=== PATIENT | female | born 1990 | race Caucasian/White ===

== ENCOUNTER 2018-07-28 07:18 | Emergency (ER) | payer BC ==
[~2018-07-28] VITALS: Ht 167.6 cm; Wt 115.0 kg
[~2018-07-28 07:18] MED LIST: ALBU8.5H8 IH; ALBU8HFA PO; IBUP-1573 PO; PRED20TA PO
[2018-07-28 08:49] LABS: CLARITY,URINE CLEAR (Clear); COLOR,URINE YELLOW (Yellow); GLUCOSE, URINE NEGATIVE (Neg); KETONES,URINE NEGATIVE (Neg); LEUKOCYTE ESTERASE ,URINE NEGATIVE (Neg); NITRITES, URINE NEGATIVE (Neg); OCCULT BLOOD,URINE NEGATIVE (Neg); PROTEIN,URINE NEGATIVE (Neg); URINE HCG NEGATIVE (NEG); UROBILINOGEN,URINE 0.2 E.U/dL (0.2-1.0)
[2018-07-28 08:51] LABS: BASOPHILS % (AUTO) 0.4 % (0-1); EOSINOPHILS # (AUTO) 0.2 X10'3 (0-0.9); EOSINOPHILS % (AUTO) 2.4 % (0-6); HEMATOCRIT 41.7 % (35.0-45.0); HEMOGLOBIN 14.2 g/dl (12.0-16.0); LYMPHOCYTES % (AUTO) 33.3 % (21-51); MEAN CORPUSCULAR HGB CONC 34.1 % (33.0-36.5); MEAN CORPUSCULAR VOLUME 99.5 FL (78-98); MEAN PLATELET VOLUME 7.5 FL (7.4-10.4); MONOCYTES # (AUTO) 0.5 X10'3 (0-0.9); MONOCYTES % (AUTO) 5.2 % (2-12); NEUTROPHILS # (AUTO) 5.3 X10'3 (1.8-7.7); NEUTROPHILS % (AUTO) 58.7 % (42-75); PLATELET COUNT 331 X10'3 (140-440); RED BLOOD COUNT 4.19 X10'6 (4.20-5.60); RED CELL DISTRIBUTION WIDTH 13.8 % (11.5-14.5)
[2018-07-28 09:10] LABS: UA COLLECTION TYPE CLN CATCH MIDSTREAM
[2018-07-28 09:23] LABS: ALANINE AMINOTRANSFERASE 45 U/L (12-78); ALBUMIN 3.6 G/DL (3.4-5.0); ALBUMIN/GLOBULIN RATIO 0.9 (1.1-1.5); ALKALINE PHOSPHATASE 63 IU/L (46-116); ANION GAP 12 (8-16); ASPARTATE AMINO TRANSFERASE 21 U/L (10-37); BILIRUBIN,TOTAL 0.2 MG/DL (0.1-1.0); BLOOD UREA NITROGEN 10 MG/DL (7-18); BUN/CREATININE RATIO 14.3 (6.6-38.0); CALCIUM 9.2 MG/DL (8.5-10.1); CHLORIDE 104 MMOL/L (99-107); GLUCOSE 96 MG/DL (70-104); LIPASE 118 U/L (73-393); POTASSIUM 4.2 MMOL/L (3.5-5.1); SODIUM 139 MMOL/L (135-145); TOTAL CARBON DIOXIDE 23.3 MMOL/L (24-32); TOTAL PROTEIN 7.4 G/DL (6.4-8.2); eGFR > 90 ML/MIN
[2018-07-28 11:17] VITALS: BP 138/88
== END 2018-07-28 11:20 | disposition home or self-care (01) ==
LOC: ER 07:18
DX: N83.202 Unspecified ovarian cyst, left side (principal); N83.201 Unspecified ovarian cyst, right side; R10.31 Right lower quadrant pain; J45.909 Unspecified asthma, uncomplicated; Z98.890 Other specified postprocedural states; Z88.5 Allergy status to narcotic agent; Z79.899 Other long term (current) drug therapy
CPT/HCPCS: 36415; 74176; 80053; 81003; 81025; 83690; 85025; 99285

== ENCOUNTER 2019-02-20 11:42 | Emergency (ER) | payer BC ==
[~2019-02-20] VITALS: Ht 167.6 cm; Wt 109.1 kg
[2019-02-20 12:08] VITALS: BP 139/101
--- NOTE | 2019-02-20 13:21 | NUR ---
Dr. Andujar with patient.
== END 2019-02-20 13:44 | disposition home or self-care (01) ==
LOC: ER 11:42
DX: F32.9 Major depressive disorder, single episode, unspecified (principal); J45.909 Unspecified asthma, uncomplicated; Z88.5 Allergy status to narcotic agent; Z88.6 Allergy status to analgesic agent; Z79.899 Other long term (current) drug therapy; Z98.890 Other specified postprocedural states
CPT/HCPCS: 99284

== ENCOUNTER 2019-02-24 18:40 | Emergency (ER) | payer BC ==
[~2019-02-24] VITALS: Ht 167.6 cm; Wt 106.0 kg
[2019-02-24] MEDS ORDERED: FLUT15.815 NAS (20:24)
[2019-02-24] MEDS ORDERED: ALBU8HFA PO (20:24)
[2019-02-24] MEDS ORDERED: VENL75TA90 PO (20:24)
[2019-02-24] MEDS ORDERED: LEVO112T5 PO (20:24)
[2019-02-24] MEDS ORDERED: CHOL500050 PO (20:24)
[2019-02-24 21:05] LABS: BASOPHILS # (AUTO) 0.1 X10'3 (0-0.2); BASOPHILS % (AUTO) 0.5 % (0-1); EOSINOPHILS # (AUTO) 0.1 X10'3 (0-0.9); EOSINOPHILS % (AUTO) 0.6 % (0-6); HEMATOCRIT 41.3 % (35.0-45.0); HEMOGLOBIN 14.2 g/dl (12.0-16.0); LYMPHOCYTES % (AUTO) 26.3 % (21-51); MEAN CORPUSCULAR HEMOGLOBIN 34.2 PG (27.0-31.0); MEAN CORPUSCULAR HGB CONC 34.3 g/dL (33.0-36.5); MEAN CORPUSCULAR VOLUME 99.5 FL (78-98); MEAN PLATELET VOLUME 7.5 FL (7.4-10.4); MONOCYTES # (AUTO) 0.7 X10'3 (0-0.9); MONOCYTES % (AUTO) 5.8 % (2-12); NEUTROPHILS # (AUTO) 7.5 X10'3 (1.8-7.7); NEUTROPHILS % (AUTO) 66.8 % (42-75); PLATELET COUNT 318 X10'3 (140-440); RED BLOOD COUNT 4.15 X10'6 (4.20-5.60); RED CELL DISTRIBUTION WIDTH 13.6 % (11.5-14.5); WHITE BLOOD COUNT 11.2 X10'3 (4.5-11.0)
[2019-02-24 21:16] LABS: ALANINE AMINOTRANSFERASE 64 U/L (12-78); ALBUMIN 3.8 G/DL (3.4-5.0); ALKALINE PHOSPHATASE 75 IU/L (46-116); ANION GAP 8 (8-16); ASPARTATE AMINO TRANSFERASE 34 U/L (10-37); BILIRUBIN,TOTAL 0.3 MG/DL (0.1-1.0); BLOOD UREA NITROGEN 10 MG/DL (7-18); BUN/CREATININE RATIO 11.8 (6.6-38.0); CALCIUM 9.3 MG/DL (8.5-10.1); CHLORIDE 104 MMOL/L (99-107); CREATININE 0.85 MG/DL (0.40-0.90); GLUCOSE 114 MG/DL (70-104); POTASSIUM 3.5 MMOL/L (3.5-5.1); SODIUM 139 MMOL/L (135-145); TOTAL CARBON DIOXIDE 26.7 MMOL/L (24-32); TOTAL PROTEIN 7.5 G/DL (6.4-8.2); eGFR 80 ML/MIN
[2019-02-24 21:25] LABS: ETHANOL < 0.010 GM/DL (0.0-0.010)
[2019-02-24 21:30] LABS: URINE HCG NEGATIVE (NEG)
[2019-02-24 21:40] LABS: URINE AMPHETAMINE SCREEN NEGATIVE (Neg); URINE BARBITUATE SCREEN NEGATIVE (Neg); URINE BENZODIAZEPINES SCREEN NEGATIVE (Neg); URINE CANNABINOID SCREEN NEGATIVE (Neg); URINE COCAINE SCREEN NEGATIVE (Neg); URINE METHADONE SCREEN NEGATIVE (Neg); URINE OPIATE SCREEN NEGATIVE (Neg); URINE PHENCYCLIDINE SCREEN NEGATIVE (Neg)
--- NOTE | 2019-02-24 22:40 | NUR ---
Pt affirms S/I a plan to cut self, but no timeframe. 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 Pt's stress appears associated with being "in the house alot and then taking care of my when she gets home. It's been hard." Pt reports a hx of self-mutilation unrelated to suicidality in the past. She indicates having last cut "a few years ago." Pt denies audio/visual hallucinations at this time. Mood is flat. Pt is appropriate and cooperative with staff. She has verbally agreed to inform staff of any changes to her thought processes.
--- NOTE | 2019-02-24 23:11 | NUR ---
Discussed pt's c/o headache pain, 04/[address] Pack; new order received.
[2019-02-24] MEDS ORDERED: acetaminophen 325mg tablet PO ONE (23:15)
--- NOTE | 2019-02-25 05:58 | NUR ---
Packet sent [facility]. Unable to confirm receipt of packet as [id number]-hours.
--- NOTE | 2019-02-25 06:38 | NUR ---
Patient sitting up in bed. No distress observed. Continue to monitor.
[2019-02-25] MEDS ORDERED: venlafaxine XR 75mg capsule (Q24H) PO SCH (08:00)
[2019-02-25] MEDS: fluticasone nasal spray 16GM bottle NS SCH ×2 (08:00→19:12)
--- NOTE | 2019-02-25 08:20 | NUR ---
RN spoke to patient because she wasn't eating. Patient states she is not hungry. Continue to monitor.
[2019-02-25] MEDS: levoTHYROXINE 112mcg tablet PO SCH (08:40)
--- NOTE | 2019-02-25 10:55 | NUR ---
Patient sitting up in bed. Patient states she is feeling suicidal. Patient states she wants to take meds to [place]. Continue to monitor.
[2019-02-25] MEDS ORDERED: acetaminophen 325mg tablet PO PRN (12:40)
[2019-02-25] MEDS ORDERED: ibuprofen tablet 400 MG TABLET PO PRN (12:40)
--- NOTE | 2019-02-25 13:05 | NUR ---
Patient eating some of her food. Continue to monitor.
--- NOTE | 2019-02-25 16:00 | NUR ---
Patient visiting with her partner. No distress observed. Continue to monitor.
--- NOTE | 2019-02-25 17:31 | NUR ---
Dr Escobedo speaking with patient. Continue to monitor.
[2019-02-25] MEDS ORDERED: lamoTRIgine 25mg tablet PO ONE (18:20)
--- NOTE | 2019-02-25 19:00 | NUR ---
Per [facility] the patient has been accepted at [facility] in [facility].
--- NOTE | 2019-02-25 20:00 | NUR ---
The patient is resting on her bed. She is tearful and upset. She stated her sleep has been poor and added, "My mind wouldn't stop" She has increased anxiety because she was hoping she would be able to be placed locally but knows she has been accepted at [facility]. THe patient was encouraged to take this time away to focus on herself and healing. She was reminded that she has had to focus on others and now would be a good time to step back and take of her own needs. She denies active suicidal thoughts at this time but admitted she had been having suicidal thoughts prior to coming into the ER. The patient is very pleasant and cooperative.
--- NOTE | 2019-02-25 22:11 | NUR ---
The patient appears to be asleep at this time
--- NOTE | 2019-02-26 00:06 | NUR ---
The patient appears to be asleep at this time
--- NOTE | 2019-02-26 02:37 | NUR ---
The patient appears to be asleep
--- NOTE | 2019-02-26 05:12 | NUR ---
The patient appears to be asleep
[2019-02-26 05:30] VITALS: BP 126/71
--- NOTE | 2019-02-26 07:11 | NUR ---
Patient appears to be sleeping at this time. No apparent distress. Will continue to monitor.
[2019-02-26] MEDS: fluticasone nasal spray 16GM bottle NS SCH (07:50)
[2019-02-26] MEDS: levoTHYROXINE 112mcg tablet PO SCH (07:54)
[2019-02-26] MEDS ORDERED: venlafaxine XR 37.5mg cap (Q24H) PO SCH (08:00)
[2019-02-26] MEDS ORDERED: lamoTRIgine 25mg tablet PO SCH (08:00)
--- NOTE | 2019-02-26 08:55 | NUR ---
Discussed with patient about being transferred to [facility] in [place]. Patient stated that she is feeling better and doesn't see why she needs to go there. Patient stated that she just needed a medication adjustment and is not feeling like she is going to hurt herself any longer. Discussed the imporance of getting the help that she needs in order to continue to be someone that she is proud of and can help provide for her new family. Patient is reluctant to go but states that she is willing to continue her treatment and to get help. Spouse and parent at bedside.
== END 2019-02-26 09:30 ==
LOC: ER 18:40
DX: F79 Unspecified intellectual disabilities (principal); R45.851 Suicidal ideations; J45.909 Unspecified asthma, uncomplicated; F31.9 Bipolar disorder, unspecified; Z90.89 Acquired absence of other organs; Z98.890 Other specified postprocedural states; Z88.5 Allergy status to narcotic agent; Z79.899 Other long term (current) drug therapy
CPT/HCPCS: 36415; 80053; 80305; 80320; 81025; 84443; 85025; 99285

== ENCOUNTER 2024-09-26 12:25 | Emergency (ER) | payer BC, MEDICAID ==
[~2024-09-26] VITALS: Ht 167.6 cm; Wt 122.7 kg
[~2024-09-26 12:25] MED LIST changes: -ALBU8.5H8 IH; +CHOL500050 PO; +FLUT15.815 NAS; -IBUP-1573 PO; +LEVO112T5 PO; -PRED20TA PO; +VENL75TA90 PO
[2024-09-26] MEDS: ketorolac trometh 30MG/ML vial 30 MG/ML VIAL IM ONE (13:34)
[2024-09-26 13:38] VITALS: BP 134/85; PULSE 81; RESP 16; TEMP 98; O2SAT 96
== END 2024-09-26 13:43 | disposition home or self-care (01) ==
LOC: ER 12:26
DX: J06.9 Acute upper respiratory infection, unspecified (principal); M94.0 Chondrocostal junction syndrome [Tietze]; J45.909 Unspecified asthma, uncomplicated; Z88.5 Allergy status to narcotic agent; Z79.899 Other long term (current) drug therapy; Z90.89 Acquired absence of other organs; Z20.822 Contact with and (suspected) exposure to COVID-19
CPT/HCPCS: 36415; 71045; 87502; 87503; 87811; 93005; 96372; 99285; J1885

== ENCOUNTER 2024-11-12 16:08 | Emergency (ER) | payer MEDICAID ==
[~2024-11-12] VITALS: Ht 167.6 cm; Wt 127.3 kg
[2024-11-12 16:14] VITALS: BP 150/79; PULSE 95; RESP 18; O2SAT 96
[2024-11-12] MEDS ORDERED: PRED20TA PO (16:56)
[2024-11-12] MEDS ORDERED: ALBU18HF2 INH (16:56)
[2024-11-12 17:14] VITALS: TEMP 97.9
== END 2024-11-12 17:16 | disposition home or self-care (01) ==
LOC: ER 16:09
DX: J22 Unspecified acute lower respiratory infection (principal); J45.901 Unspecified asthma with (acute) exacerbation; F31.9 Bipolar disorder, unspecified; Z88.5 Allergy status to narcotic agent; Z88.8 Allergy status to other drugs, medicaments and biological substances; Z90.89 Acquired absence of other organs; Z98.890 Other specified postprocedural states
CPT/HCPCS: 99283

== ENCOUNTER → 2024-11-14 | Emergency (ER) | payer MEDICAID ==
[~2024-11-14] VITALS: Ht 167.6 cm; Wt 127.8 kg
[~2024-11-14] MED LIST changes: +ALBU18HF2 INH; +PRED20TA PO
[2024-11-14 07:36] VITALS: BP 151/86; PULSE 76; RESP 18; TEMP 97.6; O2SAT 98
== END | disposition home or self-care (01) ==
LOC: ER 07:30
DX: J10.1 Influenza due to other identified influenza virus with other respiratory manifestations (principal); J45.909 Unspecified asthma, uncomplicated; F31.9 Bipolar disorder, unspecified; Z88.5 Allergy status to narcotic agent; Z88.2 Allergy status to sulfonamides; Z88.8 Allergy status to other drugs, medicaments and biological substances; Z90.89 Acquired absence of other organs; Z98.890 Other specified postprocedural states
CPT/HCPCS: 99281

== ENCOUNTER 2025-03-06 14:07 | Emergency (ER) | payer MEDICAID ==
[~2025-03-06] VITALS: Ht 167.6 cm; Wt 118.2 kg
[~2025-03-06 14:07] MED LIST changes: -PRED20TA PO
--- NOTE | 2025-03-06 14:19 | Physician Documentation ---
History of Present Illness ~ Chief Complaint: Chest Pain Stated Complaint: CHEST WALL PAIN/NECK PAIN Time Seen by MD: 16:00 Primary Medical Doctor: None HPI 35-year-old female presents to the ED with a complaint of right-sided neck pain, chest pain that is burning in nature in the mid epigastric region. Patient does admit to significant family history of cardiac disease including an uncle who patient states had his 1st heart attack at age 30 with stent placement at that time as well as again at age 62 or so. Patient also states that her father has had a stroke and her grandpa passed from heart disease/myocardial infarction. Patient currently denies any diaphoresis or shortness of breath or abdominal pain or nausea, vomiting, diarrhea. Patient states she is prediabetic but denies any current treatment of hypertension or diabetes. Patient states she recently has changed diet and striving to maintain a more healthy body weight. She has no other concern or complaint at this time. Day of Onset: March 06, 2025 Tetanus within 5 Years?: No Allergies: Coded Allergies: Sulfa (Sulfonamide Antibiotics) (Verified Allergy, Unknown, 11/14/24) codeine (Verified Allergy, Unknown, 11/14/24) hydromorphone (Verified Allergy, Unknown, 11/14/24) Active Prescriptions See Medication Reconciliation Form. Medication Reconciliation Scheduled Cholecalciferol (Vitamin D3) (Vitamin D), 5,000 UNIT PO DAILY, (Reported) Fluticasone Propionate (Aller-Mukund), 1 SPR LISA BID, (Reported) Levothyroxine Sodium (Levothyroxine Sodium), 1 TAB PO DAILY, (Reported) Venlafaxine HCl (Venlafaxine HCl ER), 1 TAB PO DAILY, (Reported) Scheduled PRN Albuterol Sulfate (Ventolin Hfa), 2 PUFFS INH Q4HPRN PRN for wheezing albuterol inhaler (Pro-Air Inhaler), 1-2 PUFFS PO Q4H PRN for shortness of breath, (Reported) Past Medical History Past Medical History: Asthma, Thyroid (unspecified), Bipolar, Depression Past Surgical History: orthopedic surgeries, tonsillectomy Other Past Family History: NONCONTRIBUTORY Alcohol Use: Occasionally Drug Use: none Lives with: Family Lives In: Home Occupation: employed Review of Systems All Other Systems at this time: Reviewed and Negative ROS As stated above in the HPI, otherwise all systems are reviewed and negative. Physical Exam Vital Signs: Temperature: 98.0, Heart Rate: 89, Respiratory Rate: 16, BP: 149/83, Pulse Oximetry: 98, Weight: 118.180 Oxygen Flow Rate: 0 Physical Exam General: Awake and Alert, no acute distress. HEENT: Conjunctiva pink, Sclera clear, Mucus Membranes moist. Neck: Supple without masses and tenderness. Resp: Unlabored. Lungs clear to auscultation bilaterally. Chest: Patient on exam has significant tenderness to palpation reproducible tenderness of the right side of her chest and clavicle as well as her sternocleidomastoid muscle of the right side. I do not appreciate any visible ecchymosis or swelling. Heart: Regular Rate and rhythm, normal S1 and S2 without murmur, rub or gallop. Abdomen: Soft and non tender no organomegaly Extremities: No cyanosis,clubbing or edema. Skin: Warm and Dry. Progress Results/Orders Results/Orders Orders - NOHEMY CAMARENA PAC Ketorolac Trometh 30mg/Ml Vial (Toradol (03/06/25 18:31) Vital Signs 03/06/25 14:11 Temp 98.0 Pulse 89 Resp 16 B/P (MAP) 149/83 Pulse Ox 98 O2 Flow Rate 0 Laboratory Tests Test 03/06/25 14:15 03/06/25 14:23 Urine Specimen Description Cln catch midstream Urine Color Yellow Urine Clarity Clear Urine pH 6.0 Urine Specific [place] >=1.030 Urine Protein Negative Urine Glucose (UA) Negative Urine Ketones Negative Urine Occult Blood Negative Urine Nitrite Negative Urine Bilirubin Negative Urine Urobilinogen 0.2 Urine Leukocyte Esterase Negative Urine Culture Indicated Not ind Volume Urine Centrifuged 10 ml Urine HCG, Qualitative Negative Urine Comment White Blood Count 10.6 Red Blood Count 4.17 L Hemoglobin 14.1 Hematocrit 39.8 Mean Corpuscular Volume 95.3 Mean Corpuscular Hemoglobin 33.9 H Mean Corpuscular Hemoglobin Concent 35.5 Red Cell Distribution Width 13.0 Platelet Count 360 Mean Platelet Volume 7.3 L Neutrophils (%) (Auto) 58.2 Lymphocytes (%) (Auto) 34.7 Monocytes (%) (Auto) 3.8 Eosinophils (%) (Auto) 2.6 Basophils (%) (Auto) 0.7 Neutrophils # (Auto) 6.1 Lymphocytes # (Auto) 3.7 Monocytes # (Auto) 0.4 Eosinophils # (Auto) 0.3 Basophils # (Auto) 0.1 CBC Comment Sodium Level 139 Potassium Level 3.7 Chloride Level 106 Carbon Dioxide Level 29.3 Anion Gap 4 L Blood Urea Nitrogen 9 Creatinine 0.90 Estimated GFR/1.73 m2 72 BUN/Creatinine Ratio 10.0 Glucose Level 94 Calcium Level 9.0 Total Bilirubin 0.2 Aspartate Amino Transf (AST/SGOT) 24 Alanine Aminotransferase (ALT/SGPT) 39 Alkaline Phosphatase 78 Total Protein 7.5 Albumin 3.7 Globulin 3.8 Albumin/Globulin Ratio 1.0 L Lipase 38 Chemistry Comments EKG/XRAY/CT/US/VASC/MRI EKG : Additional Comment EKG interpreted by myself today shows normal sinus rhythm, regular rate at 98 beats per minute, no sign of ischemia and no ST segment elevation, no axis de viation. Heart Score: Heart Score Response (Comments) Value History Slightly Suspicious 0 EKG Normal 0 Age <45 0 Risk Factors 1 or 2 risk factors 1 Troponin N/A 0 Total 1 Medical Decision Making Findings 35-year-old female presents to the ED with a complaint of right-sided neck pain, chest pain that is burning in nature in the mid epigastric region. Patient does admit to significant family history of cardiac disease including an uncle who patient states had his 1st heart attack at age 30 with stent placement at that time as well as again at age 63 or so. Patient also states that her father has had a stroke and her grandpa passed from heart disease/myocardial infarction. Patient currently denies any diaphoresis or shortness of breath or abdominal pain or nausea, vomiting, diarrhea. Patient states she is prediabetic but denies any current treatment of hypertension or diabetes. Patient states she recently has changed diet and striving to maintain a more healthy body weight. She has no other concern or complaint at this time. Patient did have EKG and labs there were unremarkable. Patient's vital signs very stable and patient also does have chest pain and right-sided neck pain that is highly reproducible on exam indicating very low suspicion for cardiac involvement. Patient was given Toradol 30 mg IM in the ED today. Patient will continue close follow up with primary care for management of prediabetes and cholesterol and decreasing cardiac risk factors. Patient will return to ED with any worsening, concerning or changing symptoms. Departure Disposition: 01 HOME / SELF CARE / HOMELESS Impression: Primary Impression: Tenderness of chest wall Condition: Improved Discharge Instructions: Nonspecific Chest Pain, Adult Additional Instructions: Patient did have EKG and labs there were unremarkable. Patient's vital signs very stable and patient also does have chest pain and right-sided neck pain that is highly reproducible on exam indicating very low suspicion for cardiac involvement. Patient was given Toradol 30 mg IM in the ED today. Patient will continue close follow up with primary care for management of prediabetes and cholesterol and decreasing cardiac risk factors. Patient will return to ED with any worsening, concerning or changing symptoms. Referrals: NO PRIMARY CARE PROVIDER (PCP) Signature Scribe Signature: No scribe Attestation: No scribe CARLOS MANUEL ZIEGLER NP March 06, 2025 14:19 NOHEMY CAMARENA PAC March 06, 2025 18:37
--- NOTE | 2025-03-06 14:21 | ELECTROCARDIOGRAPH REPORT ---
[facility] Test Date: 2025-03-06 Test Time: 14:17:57 Pat Name: [facility] [place] Department: [facility]- Patient ID: [facility]-[id number] Room: Gender: F Coil Tier: : 1990 Requested By: CARLOS MANUEL ZIEGLER Order Number: [id number] Reading MD: Measurements Intervals [place] Rate: 98 P: 36 WA: 135 QRS: 37 QRSD: 91 T: 38 QT: 341 QTc: 436 Interpretive Statements Sinus rhythm Please click the below link to view image of tracing.
[2025-03-06 14:57] LABS: BASOPHILS # (AUTO) 0.1 X10'3 (0-0.2); BASOPHILS % (AUTO) 0.7 % (0-1); EOSINOPHILS # (AUTO) 0.3 X10'3 (0-0.9); EOSINOPHILS % (AUTO) 2.6 % (0-6); HEMATOCRIT 39.8 % (35.0-45.0); HEMOGLOBIN 14.1 g/dl (12.0-16.0); LYMPHOCYTES # (AUTO) 3.7 X10'3 (1.1-4.8); LYMPHOCYTES % (AUTO) 34.7 % (21-51); MEAN CORPUSCULAR HEMOGLOBIN 33.9 PG (27.0-31.0); MEAN CORPUSCULAR HGB CONC 35.5 g/dL (33.0-36.5); MEAN CORPUSCULAR VOLUME 95.3 FL (78-98); MEAN PLATELET VOLUME 7.3 FL (7.4-10.4); MONOCYTES # (AUTO) 0.4 X10'3 (0-0.9); MONOCYTES % (AUTO) 3.8 % (2-12); NEUTROPHILS # (AUTO) 6.1 X10'3 (1.8-7.7); NEUTROPHILS % (AUTO) 58.2 % (42-75); PLATELET COUNT 360 X10'3 (140-440); RED BLOOD COUNT 4.17 X10'6 (4.20-5.60); WHITE BLOOD COUNT 10.6 X10'3 (4.5-11.0)
[2025-03-06 15:11] LABS: ALANINE AMINOTRANSFERASE 39 U/L (12-78); ALBUMIN 3.7 G/DL (3.4-5.0); ALKALINE PHOSPHATASE 78 IU/L (46-116); ANION GAP 4 (8-16); ASPARTATE AMINO TRANSFERASE 24 U/L (10-37); BILIRUBIN,TOTAL 0.2 MG/DL (0.1-1.0); BLOOD UREA NITROGEN 9 MG/DL (7-18); CHLORIDE 106 MMOL/L (99-107); GLUCOSE 94 MG/DL (70-104); LIPASE 38 U/L (16-77); POTASSIUM 3.7 MMOL/L (3.5-5.1); SODIUM 139 MMOL/L (135-145); TOTAL CARBON DIOXIDE 29.3 MMOL/L (24-32); TOTAL PROTEIN 7.5 G/DL (6.4-8.2); eCRCL 82 ML/MIN; eGFR 72 ML/MIN
[2025-03-06 15:41] LABS: URINE HCG NEGATIVE (NEG)
[2025-03-06 15:44] LABS: BILIRUBIN,URINE NEGATIVE (Neg); CLARITY,URINE CLEAR (Clear); COLOR,URINE YELLOW (Yellow); GLUCOSE, URINE NEGATIVE (Neg); KETONES,URINE NEGATIVE (Neg); LEUKOCYTE ESTERASE ,URINE NEGATIVE (Neg); NITRITES, URINE NEGATIVE (Neg); OCCULT BLOOD,URINE NEGATIVE (Neg); PROTEIN,URINE NEGATIVE (Neg); UROBILINOGEN,URINE 0.2 E.U/dL (0.2-1.0)
[2025-03-06 15:56] LABS: UA COLLECTION TYPE CLN CATCH MIDSTREAM
[2025-03-06] MEDS: ketorolac trometh 30MG/ML vial 30 MG/ML VIAL IM STA (18:40)
[2025-03-06 18:51] VITALS: BP 130/88; PULSE 75; RESP 16; TEMP 98.4; O2SAT 100
== END 2025-03-06 18:52 | disposition home or self-care (01) ==
LOC: ER 14:08
DX: R07.9 Chest pain, unspecified (principal); J45.909 Unspecified asthma, uncomplicated; I25.2 Old myocardial infarction; F31.9 Bipolar disorder, unspecified; Z79.899 Other long term (current) drug therapy; Z88.2 Allergy status to sulfonamides; Z88.5 Allergy status to narcotic agent; Z72.89 Other problems related to lifestyle
CPT/HCPCS: 36415; 80053; 81003; 81025; 83690; 85025; 93005; 96372; 99284; J1885